=== PATIENT | female | born 1980 | race Caucasian/White ===

== ENCOUNTER 2018-11-28 16:02 | Emergency (ER) | payer MEDICAID ==
[~2018-11-28] VITALS: Ht 154.9 cm; Wt 77.3 kg
[2018-11-28 16:16] VITALS: BP 129/72; PULSE 73; RESP 18; Ht 154.9 cm; Wt 77.3 kg
--- NOTE | 2018-11-28 20:14 | ERD ---
ER Documentation Chief Complaint Chief Complaint vag bleeding x 1 day; states EGA 10 wks. HPI 38-year-old female with a EGA 10 weeks by LMP 09/15/18, presents to the emergency department, complaining of pelvic pain and 1 day with vaginal bleeding. The patient has [facility] care at [facility]. She denies fevers, no chills, no diarrhea or constipation. No nausea or vomiting. ROS All systems reviewed and are negative except as per history of present illness. Allergies Allergies: Coded Allergies: No Known Allergies (Verified Allergy, Mild, 06/26/12) PMhx/Soc Medical and Surgical Hx: pt denies Medical Hx History of Surgery: Yes (Cesarian) Hx Alcohol Use: No Hx Substance Use: No Hx Tobacco Use: No Smoking Status: Never smoker FmHx Family History: coronary disease; No diabetes Physical Exam Vitals Vital Signs Date Temp Pulse Resp B/P (MAP) Pulse Ox O2 O2 Flow FiO2 Time Delivery Rate 11/28/18 99.2 73 18 129/72 98 16:16 (91) Physical Exam Const: No acute distress Head: Atraumatic Eyes: Normal Conjunctiva ENT: Normal External Ears, Nose and Mouth. Neck: Full range of motion. No meningismus. Resp: Clear to auscultation bilaterally Cardio: Regular rate and rhythm, no murmurs Abd: Soft, non tender, non distended. Normal bowel sounds Skin: No petechiae or rashes Back: No midline or flank tenderness Ext: No cyanosis, or edema Neur: Awake and alert Psych: Normal Mood and Affect Result Diagram: 11/28/182021 Results 24 hrs Laboratory Tests Test 11/28/18 20:22 White Blood Count 9.8 10^3/ul Red Blood Count 4.92 10^6/ul Hemoglobin 13.2 g/dl Hematocrit 41.0 % Mean Corpuscular Volume 83.3 fl Mean Corpuscular Hemoglobin 26.8 pg Mean Corpuscular Hemoglobin Concent 32.2 g/dl Red Cell Distribution Width 13.0 % Platelet Count 196 10^3/UL Mean Platelet Volume 11.3 fl Immature Granulocytes % 0.200 % Neutrophils % 66.3 % Lymphocytes % 27.0 % Monocytes % 5.2 % Eosinophils % 1.0 % Basophils % 0.3 % Nucleated Red Blood Cells % 0.0 /100WBC Immature Granulocytes # 0.020 10^3/ul Neutrophils # 6.5 10^3/ul Lymphocytes # 2.6 10^3/ul Monocytes # 0.5 10^3/ul Eosinophils # 0.1 10^3/ul Basophils # 0.0 10^3/ul Nucleated Red Blood Cells # 0.0 10^3/ul Urine Color STRAW Urine Clarity SLIGHTLY CLOUDY Urine pH 7.0 Urine Specific Paxton 1.009 Urine Ketones NEGATIVE mg/dL Urine Nitrite NEGATIVE mg/dL Urine Bilirubin NEGATIVE mg/dL Urine Urobilinogen NEGATIVE mg/dL Urine Leukocyte Esterase NEGATIVE Viet/ul Urine Microscopic RBC 3 /HPF Urine Microscopic WBC 1 /HPF Urine Squamous Epithelial Cells FEW /HPF Urine Hemoglobin 3+ mg/dL Urine Glucose NEGATIVE mg/dL Urine Total Protein NEGATIVE mg/dl Beta HCG, Quantitative 6635.0 mIU/ml Procedures/MDM Vital signs stable, Physical exam unremarkable. Differential diagnosis include but not limited to: UTI, threatening , incomplete versus complete , ectopic , physiologic implantation bleeding, molar . Physical examination and clinical presentation most likely consistent with missed versus early During the ED course the patient remained hemodynamically stable and asymptomatic. Results and clinical impression discussed with patient who agrees with management. The patient is stable to be treated outpatient and will be discharged home with close monitoring and follow-up in 2 days with her primary physician. Bed rest and pelvic rest recommended until further medical evaluation. The patient was instructed regarding the outcomes and the potential complications like severe bleeding and . If the patient presents severe bleeding or pain, she was instructed to return to the hospital immediately. Disclaimer: Inadvertent spelling and grammatical errors are likely due to EHR/dictation software use and do not reflect on the overall quality of patient care. Also, please note that the electronic time recorded on this note does not necessarily reflect the actual time of the patient encounter. Departure Diagnosis: Primary Impression: Vaginal bleeding in patient at less than 20 weeks gestation Condition: Stable Additional Instructions: Muchas maribel por [facility] para murillo servicio. Esperamos que en murillo visita a la eladia de emergencia murillo problema medico haya sido solucionado y que se sienta mucho mejor. Para estar seguros que murillo mejoria sigue en proceso, le pedimos el favor de hacer antonia nikolai de seguimiento medico con murillo doctor primario en los proximos 2-4 kent. Lleve con usted estos documentos y las medicinas recetadas. Si graham sintomas empeoran, NO SE ESPERE, por favor regrese a eladia de emergencia INMEDIATAMENTE. En connie que usted no tenga un mdico de atencin primaria: Llame al mdico o clnica comunitaria de referencia que aparece abajo fernando las horas de consultorio para hacer antonia nikolai para que le vean. CLINICAS: [facility] [phone] [address] [facility] [phone] [address] [facility] [phone] [address] [facility] [phone] [address] [place] [id number] [phone] [facility]. [phone] ALOK PERALTA MD Nov 28, 2018 20:14
[2018-11-30] MEDS ORDERED: HYDR-4011 PO (00:20)
[2018-11-30] MEDS ORDERED: ONDA8TAB14 PO (00:21)
== END 2018-11-28 21:58 | disposition home or self-care (01) ==
LOC: FTE 16:02
DX: O20.9 Hemorrhage in early pregnancy, unspecified (principal); R10.2 Pelvic and perineal pain; Z3A.01 Less than 8 weeks gestation of pregnancy
CPT/HCPCS: 76801; 76817; 81001; 84702; 85025; Z7502

== ENCOUNTER 2018-11-30 08:29 | Emergency (ER) | payer MEDICAID ==
[~2018-11-30] VITALS: Wt 80.0 kg
[~2018-11-30 08:29] MED LIST: HYDR-4011 PO; ONDA8TAB14 PO
[2018-11-30] MEDS ORDERED: SOD CHLORIDE 0.9% 1,000 ML IV STA (08:54)
[2018-11-30] MEDS ORDERED: ONDANSETRON 4 MG INJ IV STA (08:54)
[2018-11-30] MEDS ORDERED: morphine 4 MG/ML VIAL IV STA (08:54)
[2018-11-30] MEDS ORDERED: HYDROmorphONE 0.5 MG/0.5 ML SYG IV STA (10:16)
[2018-11-30] MEDS ORDERED: CEPH-443 PO (13:58)
[2018-11-30 15:18] VITALS: BP 58/56; PULSE 60; RESP 20
--- NOTE | 2018-11-30 15:25 | ERD ---
ER Documentation Chief Complaint Chief Complaint 7 WEEKS WITH AP HPI 38-year-old female patient, with no significant past medical history presents to the ED, currently presents the ED for slight pelvic pain and vaginal bleeding. Patient was here yesterday and was told that she was having spontaneous due to her blighted ovum noted on her ultrasound. Denies any fever, chills, nausea, vomiting, diarrhea, neck stiffness. Her last mensuration was on September 25, 2018. ROS All systems reviewed and are negative except as per history of present illness. Medications Home Meds Active Scripts Cephalexin* (Keflex*) 500 Mg Capsule, 500 MG PO QID for 7 Days, CAP Prov:KRISTIN SANDS PA-C 11/30/18 Ondansetron (Ondansetron Odt) 8 Mg Tab.rapdis, 8 MG PO Q6H PRN for NAUSEA AND/OR VOMITING, #10 TAB Prov:CARLA KEYES 11/30/18 Hydrocodone/Acetaminophen (Frazer 5-325 Tablet) 1 Each Tablet, 1 TAB PO Q6H PRN f or PAIN, #10 TAB Prov:CARLA KEYES 11/30/18 Allergies Allergies: Coded Allergies: No Known Allergies (Verified Allergy, Mild, 06/26/12) PMhx/Soc History of Surgery: Yes (Cesarian) Hx Alcohol Use: No Hx Substance Use: No Hx Tobacco Use: No FmHx Family History: No diabetes, No coronary disease Physical Exam Vitals Vital Signs Date Temp Pulse Resp B/P (MAP) Pulse Ox O2 O2 Flow FiO2 Time Delivery Rate 11/30/18 98.4 55 18 109/56 100 Room Air 11:20 (73) 11/30/18 98.1 64 18 121/64 99 08:32 (83) Physical Exam Const: Ygi-kia-szklmrnsb, well-nourished. In no acute distress. Head: Atraumatic, normocephalic Eyes: Normal Conjunctiva without injection. No purulent discharge. ENT: Normal external ear, nose. Moist oropharynx without tonsillar exudates. Non-erythematous pharynx. Uvula midline. No drooling. No trismus. Neck: No cervical midline tenderness. Full range of motion. No meningismus. No cervical lymphadenopathy. No JVD. Resp: Clear to auscultation bilaterally. No wheezing, rhonchi, rales, or crackles. No accessory muscle use. No retractions. Cardio: Regular rate and rhythm. No murmurs, rubs or gallops. Abd: Soft, right and left lower quadrant pelvic tenderness, non distended. Normal bowel sounds. No palpable masses. No rebound tenderness. No guarding. Negative McBurney's point. Negative psoas sign. Negative obturator sign. Skin: No petechiae or rashes Back: No midline tenderness. No CVA tenderness. Ext: No cyanosis, or edema. Neur: Awake and alert. Normal gait. Normal coordination. Psych: Normal Mood and Affect Result Diagram: 11/30/1892211/30/18923 Results 24 hrs Laboratory Tests Test 11/30/18 09:23 11/30/18 09:24 White Blood Count 11.5 10^3/ul Red Blood Count 4.12 10^6/ul Hemoglobin 11.1 g/dl Hematocrit 34.7 % Mean Corpuscular Volume 84.2 fl Mean Corpuscular Hemoglobin 26.9 pg Mean Corpuscular Hemoglobin Concent 32.0 g/dl Red Cell Distribution Width 13.0 % Platelet Count 189 10^3/UL Mean Platelet Volume 11.8 fl Immature Granulocytes % 0.300 % Neutrophils % 88.4 % Lymphocytes % 7.9 % Monocytes % 3.0 % Eosinophils % 0.2 % Basophils % 0.2 % Nucleated Red Blood Cells % 0.0 /100WBC Immature Granulocytes # 0.040 10^3/ul Neutrophils # 10.2 10^3/ul Lymphocytes # 0.9 10^3/ul Monocytes # 0.3 10^3/ul Eosinophils # 0.0 10^3/ul Basophils # 0.0 10^3/ul Nucleated Red Blood Cells # 0.0 10^3/ul Beta HCG, Quantitative 2284.4 mIU/ml Urine Color YELLOW Urine Clarity CLEAR Urine pH 6.0 Urine Specific Henniker 1.008 Urine Ketones TRACE mg/dL Urine Nitrite NEGATIVE mg/dL Urine Bilirubin NEGATIVE mg/dL Urine Urobilinogen NEGATIVE mg/dL Urine Leukocyte Esterase NEGATIVE Viet/ul Urine Microscopic RBC > 182 /HPF Urine Microscopic WBC 27 /HPF Urine Bacteria FEW /HPF Urine Hemoglobin 3+ mg/dL Urine Glucose NEGATIVE mg/dL Urine Total Protein NEGATIVE mg/dl Sodium Level 138 mmol/L Potassium Level 3.8 mmol/L Chloride Level 103 mmol/L Carbon Dioxide Level 21 mmol/L Anion Gap 14 Blood Urea Nitrogen 15 mg/dl Creatinine 0.41 mg/dl Est Glomerular Filtrat Rate mL/min > 60 mL/min Glucose Level 121 mg/dl Calcium Level 9.2 mg/dl Total Bilirubin 0.3 mg/dl Direct Bilirubin 0.00 mg/dl Indirect Bilirubin 0.3 mg/dl Aspartate Amino Transf (AST/SGOT) 25 IU/L Alanine Aminotransferase (ALT/SGPT) 14 IU/L Alkaline Phosphatase 62 IU/L Total Protein 7.2 g/dl Albumin 4.1 g/dl Globulin 3.10 g/dl Albumin/Globulin Ratio 1.32 Lipase 69 U/L Current Medications Medications Dose Sig/Candy Start Time Status Last (Trade) Ordered Route PRN Stop Time Admin Dose Reason Admin Sodium 1,000 ml @ Q1H STAT 11/30/18 DC 11/30/18 Chloride 1,000 mls/hr IV 08:54 09:15 11/30/18 09:53 Morphine 4 mg ONCE STAT 11/30/18 DC 11/30/18 Sulfate IV 08:54 09:14 (morphine) 11/30/18 08:56 Ondansetron 4 mg ONCE STAT 11/30/18 DC 11/30/18 HCl (Zofran IV 08:54 09:14 Inj) 11/30/18 08:56 1 mg ONCE STAT 11/30/18 DC 11/30/18 Hydromorphone IV 10:16 10:28 HCl 11/30/18 10:17 (Dilaudid) Procedures/MDM 48-year-old female patient with no significant past medical history, currently presents to ED complaining vaginal bleeding, pelvic pain. Patient is afebrile and nontoxic-appearing. Patient treated here in the ED with 4 mg IV morphine, 4 mg IV Zofran, 1 mg IV Dilaudid, 1 L of normal saline. An ultrasound, beta-hCG, CBC, type and RH, UA was ordered to evaluate patient. Discussed with Dr. Silverio, who agreed with the management discharge plan. CBC: No evidence of severe infection or anemia CMP. No evidence of alkalosis, acidosis, liver or kidney disease. Lipase within normal limits. Urine: No elevation in nitrites, leukocyte esterase, hematuria. WBC noted. Rh: O positive No indication for Rhogam at this time. beta Hc has now decreased to 2284.4 IMPRESSION: No intrauterine gestation visualized. Heterogeneous and thickened endometrium with no increased vascularity. Follow-up ultrasound and HCG levels is recommended. Patient's bleeding symptoms have stabilized while in the department. Patient likely is experiencing spontaneous . Patient will be treated for urinary tract infection. 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 Low suspicion for symptomatic anemia, ectopic , sepsis, PID, appendicitis, ovarian torsion, tubo- ovarian abscess, surgical abdomen, or other emergent conditions. Patient was educated that there is a risk for threatened . Diagnosis: Spontaneous Discharge medications: Keflex Follow up with primary care physician in 1-2 days. Instructed patient to return to the ED sooner for any worsening symptoms. Patient's questions were answered. Patient is hemodynamically stable. Patient understood and agreed with discharge plan. Patient discharged stable. Disclaimer: Inadvertent spelling and grammatical errors are likely due to EHR/dictation software use and do not reflect on the overall quality of patient care. Also, please note that the electronic time recorded on this note does not necessarily reflect the actual time of the patient encounter. Departure Diagnosis: Primary Impression: Spontaneous Condition: Stable Patient Instructions: Urinary Tract Infections in Women, Miscarriage Referrals: [facility], [facility] YOU HAVE RECEIVED A MEDICAL SCREENING EXAM AND THE RESULTS INDICATE THAT YOU DO NOT HAVE A CONDITION THAT REQUIRES URGENT TREATMENT IN THE EMERGENCY DEPARTMENT. FURTHER EVALUATION AND TREATMENT OF YOUR CONDITION CAN WAIT UNTIL YOU ARE SEEN IN YOUR DOCTORS OFFICE WITHIN THE NEXT 1-2 DAYS. IT IS YOUR RESPONSIBILITY TO MAKE AN APPOINTMENT FOR FOLOW-UP CARE. IF YOU HAVE A PRIMARY DOCTOR --you should call your primary doctor and schedule an appointment IF YOU DO NOT HAVE A PRIMARY DOCTOR YOU CAN CALL OUR PHYSICIAN REFERRAL HOTLINE AT IF YOU CAN NOT AFFORD TO SEE A PHYSICIAN YOU CAN CHOSE FROM THE FOLLOWING [facility] CLINICS [facility] [address] [facility] [address] [facility] [address] [facility] [address] [facility] [address] [facility]. [facility] [address] [facility]. [facility] YOU HAVE RECEIVED A MEDICAL SCREENING EXAM AND THE RESULTS INDICATE THAT YOU DO NOT HAVE A CONDITION THAT REQUIRES URGENT TREATMENT IN THE EMERGENCY DEPARTMENT. FURTHER EVALUATION AND TREATMENT OF YOUR CONDITION CAN WAIT UNTIL YOU ARE SEEN IN YOUR DOCTORS OFFICE WITHIN THE NEXT 1-2 DAYS. IT IS YOUR RESPONSIBILITY TO MAKE AN APPOINTMENT FOR FOLOW-UP CARE. IF YOU HAVE A PRIMARY DOCTOR --you should call your primary doctor and schedule and appointment IF YOU DO NOT HAVE A PRIMARY DOCTOR YOU CAN CALL OUR PHYSICIAN REFERRAL HOTLINE AT . IF YOU CAN NOT AFFORD TO SEE A PHYSICIAN YOU CAN CHOSE FROM THE FOLLOWING [facility] INSTITUTIONS: [facility] [address] [place] [address] [facility] [address] [place] [address] [facility] [address] [place] [address] [facility] URGENT CARE/SPECIALTIES EVENT MARKETING MANA[place] [address] [facility] [address] [place], [place] [id number] OFFICE FAX AHSAN SANTOS [address] [place], [place] [id number] [facility] [address] [place] [address] KENNETH BROWN [address] [facility], [address] [address] [address] [address] [place], [place] [id number] [facility] [address] [place] [address] [address] [facility] [address] - [address] REICHE, LIDIA [address], [place] [id number] DR HARRELL, ANA MARIA [address] [facility] [address], [place] [id number] DR NOBLES, FARID [address] [place] [address] [facility] Hours: 8:00 am - 5:00 pm Additional Instructions: Llame al doctor Obstetra MAANA y sylvia antonia EUFEMIA PARA DENTRO DE 2-3 SAAVEDRA para la repeticin beta hCG. Dgale a la secretaria que nosotros le instruimos hacer esta eufemia.Avise o llame si murillo condicin se empeora antes de la eufemia. Regresa aqui si peor o no mejor. KRISTIN SANDS PA-C Nov 30, 2018 15:25
== END 2018-11-30 15:18 | disposition home or self-care (01) ==
LOC: FTE 08:29
DX: O03.9 Complete or unspecified spontaneous abortion without complication (principal); R10.2 Pelvic and perineal pain
CPT/HCPCS: 76801; 80053; 81001; 83690; 84702; 85025; 86900; 86901; J1170; J2270; J2405; J7030; 36415; 96374; 96375